=== PATIENT | female | born 2000 | race Caucasian/White ===

== ENCOUNTER 2018-08-30 12:52 | Emergency (ER) | payer OTHER ==
--- NOTE | 2018-08-30 13:18 | EDPHY ---
H & P Time Seen by Provider: 08/30/18 13:03 HPI/ROS: Chief complaint. Almost passed out HPI. Patient is a 17-year-old female had abdominal pain that was loaded and maybe slightly on left side for 1 day since yesterday. Today she had some low back and left flank pain. She has had symptoms of UTI this past week. She has had frequent UTIs and a says she does not think it is good to be on antibiotics so often so she treated it with cranberry juice. Symptoms resolved and then came back yesterday. She went to urgent care today and was diagnosed with the kidney infection. She was given Rocephin. She got up after period of observation got lightheaded and near syncopal. She feels better now. She did not have chest discomfort or shortness of breath. Her abdominal pain and flank pain are much better. She has had previous syncope. She brings a she from urgent care with lab dip that shows evidence for UTI ROS 10 systems were reviewed and negative with the exception of the elements mentioned in the history of present illness Past Medical/Surgical History: Healthy, frequent UTIs Social History: Single, nonsmoker, no alcohol Smoking Status: Never smoked Physical Exam: General Appearance: Alert well-developed female mild distress stable Eyes: Pupils equal and round no pallor or injection. ENT, Mouth: Mucous membranes are moist. Respiratory: There are no retractions, lungs are clear to auscultation. Cardiovascular: Regular rate and rhythm. Gastrointestinal: Abdomen is soft and very slight left suprapubic discomfort. Some left flank tenderness as well that is quite mild Neurological: Awake and alert, sensory and motor exams grossly normal. Skin: Warm and dry, no rashes. Musculoskeletal: Neck is supple nontender. Extremities symmetrical, full range of motion. Psychiatric: Patient is oriented X 3, there is no agitation. Constitutional: Initial Vital Signs Temperature (C) 36.7 C 08/30/18 12:59 Heart Rate 98 08/30/18 12:59 Respiratory Rate 16 08/30/18 12:59 Blood Pressure 144/78 H 08/30/18 12:59 O2 Sat (%) 97 08/30/18 12:59 O2 Delivery Mode Room Air Allergies/Adverse Reactions: No Known Allergies Allergy (Unverified 08/30/18 12:58) Home Medications: Medication Instructions Recorded NK [No Known Home Meds] 08/30/18 Medical Decision Making - Diagnostics EKG Interpretation: EKG interpreted by me shows normal sinus rhythm normal interval and axis. QRS is normal there is no significant ST elevation or depression. There is no arrhythmia. The rate is 68 Procedures: IV normal saline, monitor ED Course/Re-evaluation: Re-evaluation 2:15 p.m.. Patient is feeling well and back to normal. The patient and I discussed EKG and laboratory evaluation. We discussed treatment plan including having her urine rechecked for protein after her UTI has resolved. She expresses understanding and agreement Differential Diagnosis: Likely the patient does have pyelonephritis. She was given Rocephin and prescription for oral antibiotics at urgent care. She had near syncope. I considered hypoglycemia, arrhythmia, electrolyte abnormalities - Data Points Laboratory Results: Laboratory Results 08/30/18 13:35 08/30/18 13:35 08/30/18 08/30/18 08/30/18 13:35 13:35 13:35 WBC 12.99 10^3/uL H 10^3/uL (3.80-9.50) RBC 4.55 10^6/uL 10^6/uL (4.18-5.33) Hgb 12.8 g/dL g/dL (12.6-16.3) Hct 39.6 % % (38.0-47.0) MCV 87.0 fL fL (81.5-99.8) MCH 28.1 pg pg (27.9-34.1) MCHC 32.3 g/dL L g/dL (32.4-36.7) RDW 14.0 % % (11.5-15.2) Plt Count 264 10^3/uL 10^3/uL (150-400) MPV 10.5 fL fL (8.7-11.7) Neut % (Auto) 87.5 % H % (39.3-74.2) Lymph % (Auto) 6.7 % L % (15.0-45.0) Ness % (Auto) 5.1 % % (4.5-13.0) Eos % (Auto) 0.1 % L % (0.6-7.6) Baso % (Auto) 0.2 % L % (0.3-1.7) Nucleat RBC Rel Count 0.0 % % (0.0-0.2) Absolute Neuts (auto) 11.38 10^3/uL H 10^3/uL (1.70-6.50) Absolute Lymphs (auto) 0.87 10^3/uL L 10^3/uL (1.00-3.00) Absolute Monos (auto) 0.66 10^3/uL 10^3/uL (0.30-0.80) Absolute Eos (auto) 0.01 10^3/uL L 10^3/uL (0.03-0.40) Absolute Basos (auto) 0.02 10^3/uL 10^3/uL (0.02-0.10) Absolute Nucleated RBC 0.00 10^3/uL 10^3/uL (0-0.01) Immature Gran % 0.4 % % (0.0-1.1) Immature Gran # 0.05 10^3/uL 10^3/uL (0.00-0.10) Sodium 138 mEq/L mEq/L (135-145) Potassium 3.8 mEq/L mEq/L (3.3-5.0) Chloride 101 mEq/L mEq/L (97-110) Carbon Dioxide 25 mEq/l mEq/l (22-31) Anion Gap 12 mEq/L mEq/L (6-14) BUN 12 mg/dL mg/dL (7-23) Creatinine 0.8 mg/dL mg/dL (0.6-1.0) Estimated GFR > 60 Glucose 152 mg/dL H mg/dL (70-100) Calcium 9.3 mg/dL mg/dL (8.5-10.4) Beta HCG, Qual NEGATIVE Medications Given: Discontinued Medications Sodium Chloride (Ns) 1,000 mls @ 0 mls/hr IV EDNOW ONE; Wide Open PRN Reason: Protocol Stop: 08/30/18 13:27 Last Admin: 08/30/18 13:37 Dose: 1,000 mls Departure - Departure Disposition: Home, Routine, Self-Care Clinical Impression: Near syncope Urinary tract infection Qualifiers: Urinary tract infection type: acute pyelonephritis Qualified Code(s): N10 - Acute pyelonephritis Condition: Good Instructions: Urinary Tract Infection in Women (ED), Near Syncope (ED) Additional Instructions: Feel your prescription for antibiotics and start taking your antibiotics as prescribed. Drink plenty of fluids and stay hydrated. Regular meals and sleep Return for further symptoms of feeling like you will pass out. Have your urine recheck by your regular physician in [place] after you're done with your course of antibiotics Referrals: [facility] [Other] - 5-7 days, call for appt.
[2018-08-30] MEDS ORDERED: NS 1,000 ML IV ONE (13:26)
[2018-08-30 13:46] LABS: PLATELET COUNT 264 10^3/uL (150-400)
--- NOTE | 2018-08-30 14:27 | CPEKG ---
Test Reason : OPEN Blood Pressure : / mmHG Vent. Rate : 068 BPM Atrial Rate : 068 BPM P-R Int : 150 ms QRS Dur : 095 ms QT Int : 401 ms P-R-T Axes : 062 036 024 degrees QTc Int : 427 ms Sinus rhythm Confirmed by Tony Leija ([id number]) on 08/30/2018 2:26:52 PM Referred By: Confirmed By:Tony Leija
[2018-08-30 14:42] VITALS: BP 107/61
== END 2018-08-30 14:40 | disposition home or self-care (01) ==
DX: N10 Acute pyelonephritis (principal); R55 Syncope and collapse; E86.9 Volume depletion, unspecified